=== PATIENT | male | born 1965 | race Caucasian/White ===

== ENCOUNTER → 2017-10-27 | Outpatient (CLI) | payer MEDICAID | LOC: FIMAGING 07:30 | PROVIDERS: ATTEND Internal Medicine Nephrology | DX: N13.2 Hydronephrosis with renal and ureteral calculous obstruction (principal); N18.3 Chronic kidney disease, stage 3 (moderate); N40.1 Benign prostatic hyperplasia with lower urinary tract symptoms ==

== ENCOUNTER → 2017-10-31 | Outpatient (CLI) | payer MEDICAID ==
[~2017-10-31] MED LIST: DIAZEPAM 5 MG TAB ONE; LIDOCAINE 2% JELLY 5 ML TUBE ONE; LIDOCAINE/PRILOCAINE 1 EACH CRTUBE TP ONE
== END ==
LOC: FIMAGING 07:19
PROVIDERS: ATTEND Internal Medicine Gastroenterology
DX: Z87.19 Personal history of other diseases of the digestive system (principal); K92.1 Melena; R93.3 Abnormal findings on diagnostic imaging of other parts of digestive tract

== ENCOUNTER 2017-12-28 09:52 | Day surgery (SDC) | payer MEDICAID ==
--- NOTE | 2017-12-27 18:43 | GHP ---
[f rep st] PREOP HISTORY AND PHYSICAL DATE OF ADMISSION: 12/28/2017 ADMISSION DIAGNOSIS: Difficulty urinating. HISTORY OF PRESENT ILLNESS: Patient was referred by Dr. Fitzgerald. He had weak stream with decreased force and incomplete emptying. He complains of leaking throughout his pants postvoid. It has been worsening over the years. He says he has previously had a catheter placed under sedation, and been on Flomax which has not helped significantly. He has had a past medical history noted for chronic kidney disease. He has had a kidney stone treated in 2009. Creatinine on 09/22/2017 is 1.5. PSA 0.68. Renal ultrasound showed a 1.5 cm renal structure that is either cystitis or dilated medullary pyramid. He has had an AUA score that his quality of life is 5, total score 17. PAST MEDICAL HISTORY: Bipolar, BPH, heart attack, kidney disease, urethral stenosis. PAST SURGICAL HISTORY: ACL repair, colonoscopy, hernia repair. MEDICATIONS: Aspirin, atorvastatin, bupropion, clonazepam, metoprolol. ALLERGIES: None. FAMILY HISTORY: Heart disease, kidney stones, hypertension. SOCIAL HISTORY: Nonsmoker, nondrinker. No children. IMMUNIZATIONS: Up to date. REVIEW OF SYSTEMS: Negative cardiac, respiratory, GI, and endocrine. PHYSICAL EXAMINATION: VITAL SIGNS: Stable. CHEST: Clear. HEART: Regular rate and rhythm. ABDOMEN: Normal. No organomegaly, rebound or guarding. ASSESSMENT AND PLAN: Urethral meatus has stenosis present and at the present time, he is admitted for urethral dilation, cystoscopy, maybe meatotomy. /[id number]/MODL MTDD
--- NOTE | 2017-12-28 07:55 | PDHPUP ---
History & Physical Update H&P update statement: This history and physical update is based on an assessment of the patient which was completed after admission or registration (within 24 hours), but prior to the surgery/procedure. H&P update: H&P reviewed & patient examined, no change in patient's condition since H&P completed
[~2017-12-28 09:52] MED LIST changes: +CLINDAMYCIN 900 MG/DEXTROSE 50 ML IV ONE; -DIAZEPAM 5 MG TAB ONE; -LIDOCAINE 2% JELLY 5 ML TUBE ONE; -LIDOCAINE/PRILOCAINE 1 EACH CRTUBE TP ONE
[2017-12-28] MEDS ORDERED: LIDOCAINE 1% 2 ML INJ ID PRN (10:04)
[2017-12-28] MEDS ORDERED: LR 1,000 ML IV ONE (10:04)
[2017-12-28] MEDS ORDERED: CLINDAMYCIN 900 MG/DEXTROSE/50 ML BAG IV ONE (10:26)
[2017-12-28] MEDS ORDERED: LIDOCAINE 2% JELLY 20 ML (UROJECT) ONE (11:35)
[2017-12-28] MEDS ORDERED: IOPAMIDOL (ISOVUE-M 300) 15 ML VIAL ONE (11:36)
[2017-12-28] MEDS ORDERED: IOPAMIDOL (ISOVUE-300) 150 ML BTL ONE (11:36)
[2017-12-28] MEDS ORDERED: MIDAZOLAM 2 MG/2 ML VIAL ONE (11:43)
[2017-12-28] MEDS ORDERED: MIDAZOLAM 2 MG/2 ML VIAL IVP ONE (11:45)
--- NOTE | 2017-12-28 11:46 | PDANEPAE ---
ANE History of Present Illness Patient presents for urethral dilation, cystoscopy ANE Past Medical History - Cardiovascular History Hx Hypertension: No Hx Arrhythmias: No Hx Chest Pain: No Hx Coronary Artery / Peripheral Vascular Disease: Yes Hx CHF / Valvular Disease: No Hx Palpitations: No Cardiovascular History Comment: R coronary artery stent x2 2009, s/p [place] '10. on beta bonnie and statin - Pulmonary History Hx COPD: No Hx Asthma/Reactive Airway Disease: No Hx Recent Upper Respiratory Infection: No Hx Oxygen in Use at Home: No Hx Sleep Apnea: No Sleep Apnea Screening Result - Last Documented: Negative - Neurologic History Hx Cerebrovascular Accident: No Hx Seizures: No Hx Dementia: No - Endocrine History Hx Diabetes: No - Renal History Hx Renal Disorders: Yes Renal History Comment: Chronic kidney disease stage 3;. weak stream, urinary retention - Liver History Hx Hepatic Disorders: No - Neurological & Psychiatric Hx Hx Neurological and Psychiatric Disorders: Yes Neurological / Psychiatric History Comment: bipolar 2 - Cancer History Hx Cancer: No - Congenital Disorder History Hx Congenital Disorders: No - GI History Hx Gastrointestinal Disorders: No - Chronic Pain History Chronic Pain: No - Surgical History Prior Surgeries: umbilical hernia. ACL repair. reapir of bowel (s/p colonoscopy). kidney stone extraction (2 procedures). Stent RCA ANE Review of Systems Review of Systems: - Exercise capacity METS (RN): 4 METS ANE Patient History - Allergies Allergies/Adverse Reactions: No Known Allergies Allergy (Verified 12/27/17 11:05) - Home Medications Home Medications: Atorvastatin Calcium 10/31/17 [Last Taken 12/27/17] Bupropion HCl 10/31/17 [Last Taken 12/28/17 08:15] CLONAZEPAM 10/31/17 [Last Taken 12/27/17] Flomax 10/31/17 [Last Taken 12/28/17 08:15] Metoprolol Succinate 10/31/17 [Last Taken 12/28/17 08:15] lamOTRIGine 10/31/17 [Last Taken 12/28/17 08:15] - NPO status NPO Status: no food or drink >8 hours NPO Since - Liquids (Date): 12/28/17 NPO Since - Liquids (Time): 08:15 NPO Since - Solids (Date): 12/27/17 NPO Since - Solids (Time): 22:00 - Smoking Hx Smoking Status: Never smoked ANE Labs/Vital Signs - Vital Signs Blood Pressure: 126/86 Heart Rate: 84 Respiratory Rate: 16 O2 Sat (%): 94 Height: 175.26 cm Weight: 77.111 kg ANE Physical Exam - Airway Neck exam: FROM Mallampati Score: Class 2 Mouth exam: normal dental/mouth exam - Pulmonary Pulmonary: no respiratory distress - Cardiovascular Cardiovascular: regular rate and rhythym - ASA Status ASA Status: III ANE Anesthesia Plan Anesthesia Plan: GA w LMA (RBA discussed)
[2017-12-28] MEDS ORDERED: fentaNYL 100 MCG/2 ML INJ ONE ×2 (11:48→13:16)
[2017-12-28] MEDS ORDERED: PROPOFOL/EMULSION 500 MG/50 ML BOTTLE IV ONE (11:49)
[2017-12-28] MEDS ORDERED: PROPOFOL 200 MG/20 ML VIAL ONE (11:49)
[2017-12-28] MEDS ORDERED: PHENYLEPHRINE HCL 100 MCG/ML SYR ONE (12:06)
--- NOTE | 2017-12-28 12:21 | POSTOPPROG ---
Post Op Note Date of Operation: 12/28/17 Surgeon: Maximino Hunter Anesthesiologist: Ten Anesthesia: LMA Pre-op Diagnosis: possible urethral stricture Post-op Diagnosis: bph Procedure: cysto Findings: bph Inf/Abcess present in the surg proc area at time of surgery?: No EBL: Minimal Drains: Other (edwards) Specimen(s): none--dictated
[2017-12-28] MEDS ORDERED: ACETAMINOPHEN 500 MG TAB PO PRN (12:36)
[2017-12-28] MEDS ORDERED: LR 500 ML IV PRN (12:36)
[2017-12-28] MEDS ORDERED: ONDANSETRON 4 MG/2 ML VIAL IVP PRN (12:36)
[2017-12-28] MEDS ORDERED: oxyCODONE IR 5 MG TAB PO PRN (12:36)
[2017-12-28] MEDS ORDERED: NALOXONE HCL 0.4 MG/ML INJ IVP PRN (12:36)
--- NOTE | 2017-12-28 12:36 | POSTANESTH ---
Post Anesthetic Evaluation Cardiovascular Status: Similar to Pre-Op Cond Respiratory Status: Similar to Pre-op Cond. Level of Consciousness/Mental Status: Can Participate in Eval Pain Control: Adequate, Prn Tx Ordered Nausea/Vomiting Control: Adequate, Prn Tx Ordered Complications Possibly Related to Anesthesia: None Noted
--- NOTE | 2017-12-28 12:40 | GOP ---
[f rep st] OPERATIVE REPORT DATE OF OPERATION: 12/28/2017 SURGEON: Maximino Hunter MD ANESTHESIA: General. ANESTHESIOLOGIST: Carlos Caal MD. PREOPERATIVE DIAGNOSIS: Urinary symptoms suggestive of stricture. POSTOPERATIVE DIAGNOSIS: Urinary symptoms suggestive of stricture. PROCEDURE PERFORMED: Cystoscopy. FINDINGS: Normal with mild bladder neck tightness. DESCRIPTION OF PROCEDURE: This gentleman underwent general anesthesia. Prepped and draped in normal sterile fashion in the dorsal lithotomy position. Urethra was normal. The bulb of the urethra was normal. A pelvic outlet was normal. Prostate was normal. Mild bladder neck tightness. Bladder had no tumor, stones, foreign bodies, or diverticula. Ureteral orifices were normal position with clear efflux bilaterally. Uro-Jet placed in the urethra. A 16 Juan catheter placed. He will be dischar ged home and will remove the catheter and then follow up in the office in 10 days. /[id number]/MODL
[2017-12-28] MEDS ORDERED: oxyCODONE IR 5 MG TAB ONE (13:16)
[2017-12-28] MEDS: fentaNYL 100 MCG/2 ML INJ IVP PRN ×3 (13:18→13:57)
[2017-12-28 14:59] VITALS: BP 144/90
== END 2017-12-28 14:45 | disposition home or self-care (01) ==
LOC: FSGY 09:52
PROVIDERS: ATTEND Specialist
PROC: 0TJB8ZZ Inspection of Bladder, Via Natural or Artificial Opening Endoscopic (ICD-10-PCS; principal; 2017-12-28 11:15)
DX: N40.1 Benign prostatic hyperplasia with lower urinary tract symptoms (principal); N32.89 Other specified disorders of bladder; N39.41 Urge incontinence; R33.9 Retention of urine, unspecified; R39.12 Poor urinary stream; I25.2 Old myocardial infarction; N18.3 Chronic kidney disease, stage 3 (moderate); F31.9 Bipolar disorder, unspecified; Z79.82 Long term (current) use of aspirin; Z87.442 Personal history of urinary calculi; Z82.49 Family history of ischemic heart disease and other diseases of the circulatory system; Z95.5 Presence of coronary angioplasty implant and graft
CPT/HCPCS: 52000; C1769; J2250; J2370; J2704; J3010; Q9967

== ENCOUNTER → 2018-04-26 | Outpatient (CLI) | payer MEDICAID | LOC: FIMAGING 15:38 | PROVIDERS: ATTEND Orthopaedic Surgery | DX: M25.561 Pain in right knee (principal) ==